=== PATIENT | male | born 1970 | race Caucasian/White ===

== ENCOUNTER → 2021-05-13 08:19 | Outpatient (CLI) | payer OTHER, SELFPAY ==
[2021-05-13 10:41] LABS: Cholesterol 174 mg/dL (140-199); HDL Cholesterol 59 mg/dL (40-60); LDL Cholesterol Calculated 101 mg/dL (<100); Triglycerides 68 mg/dL (35-150)
[2021-05-14 08:46] LABS: Rubeola Measles IgG > 300.0 AU/mL (Immune >16.4)
[2021-05-14 11:41] LABS: Mumps Virus IgG Antibody <9.0 AU/mL (Immune >10.9)
== END ==
PROVIDERS: Family Provider Family Medicine; PCP Internal Medicine; Referring Provider Internal Medicine; Visit Provider Internal Medicine
DX: B34.9 Viral infection, unspecified (principal); Z13.220 Encounter for screening for lipoid disorders
CPT/HCPCS: 36415; 80061; 86735; 86762; 86765

== ENCOUNTER → 2022-01-10 16:42 | Outpatient (CLI) | payer OTHER, SELFPAY ==
[2022-01-11 15:46] LABS: Fecal Immunochemical Test Positive (Negative)
== END ==
PROVIDERS: Family Provider Family Medicine; PCP Internal Medicine; Referring Provider Internal Medicine; Visit Provider Internal Medicine
DX: Z12.11 Encounter for screening for malignant neoplasm of colon (principal)
CPT/HCPCS: 82274

== ENCOUNTER → 2022-02-23 13:37 | Outpatient (CLI) | payer OTHER, SELFPAY ==
[2022-02-23 14:26] LABS: COVID19 -Nasal RAPID Negative (Negative)
== END ==
PROVIDERS: Family Provider Family Medicine; PCP Internal Medicine; Visit Provider Surgery
DX: Z20.822 Contact with and (suspected) exposure to COVID-19 (principal); Z01.812 Encounter for preprocedural laboratory examination
CPT/HCPCS: 87635; C9803

== ENCOUNTER 2022-02-24 12:18 | Day surgery (SDC) | payer OTHER, SELFPAY ==
--- NOTE | 2022-02-24 | PATH_ITS ---
[facility] Accession Number: [id number] . 01 Material submitted: . PART A: colon - DESCENDING COLON POLYPS PART B: colon - ASCENDING COLON POLYPS PART C: colon - PROXIMAL TRANSVERSE COLON POLYP PART D: colon - TRANSVERSE COLON POLYPS PART E: sigmoid colon - SIGMOID COLON POLYP . 02 Diagnosis: A. Descending Colon Polyps: Portions of tubular adenoma x2. . B. Ascending Colon Polyps: Portion of tubular adenoma x1 with prominent submucosal fibroadipose tissue, favor adenomatous change overlying a submucosal lipoma. Portions of sessile serrated adenoma x2. . C. Proximal Transverse Colon Polyp: Portions of sessile serrated adenoma x5. . D. Transverse Colon Polyps: Portions of tubular adenoma x2. . E. Sigmoid Colon Polyp: Portions of tubular adenoma x5. [facility] 03/01/2022 1545 Local . 02 Electronically signed: . Anne-Marie Murphy MD, Pathologist NPI- [id number] . 01 Gross description: . Part A: DESCENDING COLON POLYPS: Received in formalin are 2 fragment(s) of madsen, soft tissue measuring 0.7 x 0.3 x 0.2 cm to 0.5 x 0.3 x 0.2 cm submitted entirely in 1 cassette(s) Part B: ASCENDING COLON POLYPS: Received in formalin are 3 fragment(s) of madsen, soft tissue measuring 1.1 x 0.8 x 0.8 cm to 0.3 x 0.1 x 0.1 cm submitted entirely in 2 cassette(s) Part C: PROXIMAL TRANSVERSE COLON POLYP: Received in formalin are multiple fragment(s) of madsen, soft tissue measuring 1.2 x 0.6 x 0.1 cm to 1.2 x 0.5 x 0.1 cm submitted entirely in 2 cassette(s) Part D: TRANSVERSE COLON POLYPS: Received in formalin are 2 fragment(s) of madsen, soft tissue measuring 0.7 x 0.5 x 0.4 cm to 0.5 x 0.4 x 0.3 cm which are bisected and submitted entirely in 2 cassette(s) Part E: SIGMOID COLON POLYP: Received in formalin are multiple fragment(s) of madsen, soft tissue measuring 2.0 x 0.5 x 0.2 cm in aggregate submitted entirely in 1 cassette(s) /CPE 02/25/2022 0652 Local . 02 Pathologist provided ICD-10: R19.5, K63.5 . 02 CPT . 988401, 163329, 257848, 962976, 604794 Specimen Comment: A courtesy copy of this report has been sent to [phone] Performed at: 01 [facility] [address] [id number] MD Juan Morocho MD Phone: [phone] Performed at: 02 [facility] [address] [address] [place], [place] [id number] MD Taryn Oakes MD Phone: [phone]
[2022-02-24] MEDS: LACTATED RINGERS 1,000 ML 84 ML IV (12:41)
[2022-02-24 12:49] VITALS: BP 119/71; PULSE 72; RESP 16; TEMP 36.8; O2SAT 99; BMI 28.7
--- NOTE | 2022-02-24 13:59 | PM.HP.1 ---
History of Present Illness History of Present Illness Date Patient Seen: 02/24/22 Time Patient Seen: 13:59 Chief complaint: DX COLONOSCOPY Narrative: Steven is a healthy 51-year-old man who had recent fit test that was positive. 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) Surgical History H/O umbilical hernia repair Family & Social History Social History: household members spouse Tobacco & Substance use: Smoking Status Former smoker alcohol intake current alcohol intake frequency a few times a week Substance Use Type does not use Meds Home Medications and Allergies Home Medications Medication Instructions Recorded Confirmed Type No Known Home Medications 02/24/22 02/24/22 History Allergies Allergy/AdvReac Type Severity Reaction Status Date / Time codeine [CODEINE] Allergy Mild CAUSES Verified 02/24/22 12:44 HICCUPS Exam Vital Signs (past 8 hours): - 02/24/22 12:49 Temperature 98.2 F Pulse Rate 72 Respiratory Rate 16 Blood Pressure 119/71 Pulse Oximetry 99 Oxygen Delivery Method Room Air Const General: healthy appearing Resp Effort & Inspection: normal respiratory effort GI Palpation: soft Assessment & Plan Assessment and plan (1) Positive FIT (fecal immunochemical test): Status: Acute Plan Healthy 51-year-old man with a positive fit test. We discussed colonoscopy and he would like to proceed. COVID-19 COVID-19 status: Negative Result date/Date tested (Pos, Neg/Pending): 02/23/22 Time Spent With Patient Critical Care time: I spent a total of [] minutes of critical care time on this patient's care today; this time is exclusive of procedural time.
[2022-02-24] MEDS: MIDAZOLAM 5 MG/5 ML VIAL 9 MG IV (14:06)
[2022-02-24] MEDS: fentaNYL 250 MCG/5 ML INJ 200 MCG IV (14:06)
--- NOTE | 2022-02-24 15:07 | PM.OP.COLON ---
Operative Date/Time/Diagnoses Date of procedure: 02/24/22 Time of procedure: 15:07 Pre-op diagnosis: Positive fit test Post-op diagnosis: same Procedure & Clinicians Study performed: Colonoscopy Same procedure as scheduled: Yes Procedure Notes Procedure in detail: Surgeon: Leonel Huerta MD Procedure: The patient was brought to the endoscopy suite, placed in left lateral decubitus position. The patient was connected to monitoring devices. A time-out was performed. Sedation was administered. Once the patient was adequately sedated, a digital rectal exam was performed and was normal. The scope was then inserted and advanced to the right colon where a 1.2 cm polyp was noted and removed with hot snare and withdrawn with the Mcdonnell Net. The scope was then reinserted to the cecum where the appendiceal orifice was identified and photographed. The scope was then slowly withdrawn over greater than 6 minutes. Mucosa was thoroughly inspected. There was 1 additional 1 cm polyp in the ascending colon which was removed with the hot snare. There were 2 polyps in the transverse colon, one of which was very flat and longer than 1 cm and was lifted with a saline lift before being removed with the hot snare. The other proximal transverse colon polyp was removed with cold snare. There were 2 other subcentimeter polyps were removed from the mid transverse colon with cold snare. There was a subcentimeter polyp in the sigmoid colon removed with hot snare. The scope was retroflexed in the rectum. No other abnormalities were noted. The scope was straightened and removed. The patient was awakened and brought to recovery. Versed: 9 mg Fentanyl: 200 mcg EBL: 15 mL Findings: 2 polyps in the ascending colon, both just over 1 cm, 2 polyps in proximal transverse colon, 2 polyps in the mid transverse colon, 1 polyp in the sigmoid colon Scope withdrawal time: 35 Sedation minutes: 59 Post-procedure Recommendations: Will call with biopsy results Disposition: PACU
[2022-02-24 15:10] VITALS: BP 102/68; PULSE 65; RESP 11; TEMP 36.3; O2SAT 97
[2022-02-24 15:15] VITALS: BP 97/61; PULSE 62; RESP 10; O2SAT 96
[2022-02-24 15:25] VITALS: BP 95/66; PULSE 64; RESP 11; O2SAT 98
[2022-02-24 15:30] VITALS: BP 124/87; PULSE 60; RESP 11; O2SAT 97
== END 2022-02-24 16:00 | disposition home or self-care (01) ==
PROVIDERS: Family Provider Family Medicine; PCP Internal Medicine; Referring Provider Surgery; Visit Provider Surgery
PROC: 0DJD8ZZ Inspection of Lower Intestinal Tract, Via Natural or Artificial Opening Endoscopic (ICD-10-PCS; CPT 45378; principal; 2022-02-24 13:45)
DX: R19.5 Other fecal abnormalities (principal); D12.4 Benign neoplasm of descending colon; D12.2 Benign neoplasm of ascending colon; D12.3 Benign neoplasm of transverse colon; D12.5 Benign neoplasm of sigmoid colon
CPT/HCPCS: 45381; 45385; 99152; 99153; J2250; J3010

== ENCOUNTER → 2024-12-14 09:34 | Outpatient (CLI) | payer BC, SELFPAY ==
[2024-12-14 12:12] LABS: Alanine Aminotransferase 23 IU/L (<50); Albumin 4.1 g/dL (3.5-5.0); Albumin Globulin Ratio 1.6 (1.0-2.8); Alkaline Phosphatase 46 U/L (38-126); Aspartate Aminotransferase 29 IU/L (17-59); BUN Creatinine Ratio 18.2 (6-22); Bilirubin Total 0.8 mg/dL (0.2-1.3); Blood Urea Nitrogen 20 mg/dL (9-20); Carbon Dioxide 29 mmol/L (22-32); Chloride 105 mmol/L (98-107); Cholesterol 151 mg/dL (140-199); Estimated Glomerular Filt Rate > 60 mL/min (>60); Globulin 2.6 g/dL (1.7-4.1); Glucose 100 mg/dL (70-100); HDL Cholesterol 56 mg/dL (40-60); HEMOLYSIS < 15 (0-50); LDL Cholesterol Calculated 83 mg/dL (<100); Sodium 140 mmol/L (137-145); Total Protein 6.7 g/dL (6.3-8.2); Triglycerides 62 mg/dL (35-150)
[2024-12-14 12:42] LABS: Prostate Specific Antigen Scrn 1.01 ng/mL (0.1-4.0)
[2024-12-16 15:08] LABS: Var-Zoster Immunity Screen Reactive (Non Reactive)
== END ==
PROVIDERS: Family Provider Family Medicine; PCP Internal Medicine; Referring Provider Internal Medicine; Visit Provider Internal Medicine
DX: B02.9 Zoster without complications (principal); Z12.5 Encounter for screening for malignant neoplasm of prostate; Z13.1 Encounter for screening for diabetes mellitus; Z13.6 Encounter for screening for cardiovascular disorders; E78.5 Hyperlipidemia, unspecified
CPT/HCPCS: 36415; 80053; 80061; 86787; G0103

== ENCOUNTER 2025-03-19 13:35 | Day surgery (SDC) | payer BC, SELFPAY ==
--- NOTE | 2025-03-19 | PATH_ITS ---
[facility] Accession Number: [id number] No. of containers..01 Tissue . 01 Material submitted: . colon - COLON, POLYP X 2 @ 30CM . 01 Diagnosis: COLON AT 30 CM, POLYPECTOMIES: Tubular adenomas (two polyps removed). [facility] 03/21/2025 1512 Local . 01 Electronically signed: . Johanna Kong DO, Pathologist NPI- [id number] . 01 Gross description: . COLON, POLYP X 2 @ 30CM: Received in formalin are 2 fragment(s) of madsen, soft tissue measuring 0.1 x 0.1 x 0.1 cm to 0.5 x 0.3 x 0.2 cm submitted entirely in 1 cassette(s) /JASON 03/20/20252054 Local . 01 Pathologist provided ICD-10: Z12.11 . 01 CPT . 411202 Specimen Comment: A courtesy copy of this report has been sent to [phone] Performed at: 01 [facility] [address], [place], [place] [id number] MD Juan Morocho MD Phone: [phone]
[2025-03-19 13:54] VITALS: BP 113/67; PULSE 59; RESP 16; TEMP 36.2; O2SAT 96
[2025-03-19] MEDS: LACTATED RINGERS 1,000 ML 84 ML IV (14:02)
--- NOTE | 2025-03-19 14:06 | PM.HP.IH.1 ---
History of Present Illness History of Present Illness Date Patient Seen: 03/19/25 Chief complaint: Screening Colonoscopy Narrative: Follow-up colonoscopy after the 1st found multiple polyps of varying sizes. Pathology showed all than to be tubular adenomas with the exception of 1 which was a sessile serrated adenoma. He now returns for routine follow-up. 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) Surgical History H/O umbilical hernia repair Social History household members: spouse Smoking Status: Never smoker alcohol intake: current Meds Home Medications and Allergies Allergies Allergy/AdvReac Type Severity Reaction Status Date / Time No Known Drug Allergies Allergy Verified 03/19/25 14:01 Exam Vital Signs (past 8 hours): - 03/19/25 13:54 Temperature 97.1 F L Pulse Rate 59 L Respiratory Rate 16 Blood Pressure 113/67 Pulse Oximetry 96 Oxygen Delivery Method Room Air Oxygen Delivery Method Room Air Narrative Exam Narrative: Oropharynx free of lesion Assessment & Plan Assessment & Plan narrative: Multiple enlarged colon polyps 1 of which was a sessile serrated adenoma need for follow-up colonoscopy. Risks, benefits, alternatives have been explained. Time-Based Coding :: [TOTAL MINUTES] spent with patient and on the chart (including review of chart, obtaining history, exam, reviewing outside data, placing orders, documenting exam and treatment plan, and counseling patient) on [DATE]. PROFEE District Resource Officer Document charge(s): No
--- NOTE | 2025-03-19 14:08 | PM.OP.COLON ---
Operative Date/Time/Diagnoses Date of procedure: 03/19/25 Time of procedure: 14:30 Pre-op diagnosis: See indication and findings Post-op diagnosis: same Procedure & Clinicians Study performed: Colonoscopy Same procedure as scheduled: Yes Indications: Multiple large colon polyps follow-up Surgeon: Rita Eduardo Procedure Notes Procedure in detail: After informed consent was was obtained the patient was placed in left lateral decubitus position. The video ?colonoscope was placed into the rectum slowly advanced cecum. On slow withdrawal the mucosa was carefully examined. The scope was removed. The patient tolerated procedure well. Blood loss none Complications none Sedation mac Findings 1. Two diminutive polyps at 30 cm Jumbo biopsied and removed completely 2. Otherwise negative colonoscopy to cecum I think we can now stretch out the colonoscopy interval to 5 years.
[2025-03-19 14:33] VITALS: BP 92/63; PULSE 78; RESP 18; TEMP 36.3; O2SAT 95
[2025-03-19 14:38] VITALS: BP 98/63; PULSE 68; RESP 15; O2SAT 96
[2025-03-19 14:45] VITALS: BP 97/66; PULSE 62; RESP 16; O2SAT 97
[2025-03-19 14:55] VITALS: BP 106/74; PULSE 59; RESP 13; O2SAT 98
[2025-03-19 15:08] VITALS: BP 105/73; PULSE 65; RESP 15; O2SAT 99
== END 2025-03-19 15:15 | disposition home or self-care (01) ==
PROVIDERS: Family Provider Family Medicine; PCP Internal Medicine; Referring Provider Internal Medicine Gastroenterology; Visit Provider Internal Medicine Gastroenterology
PROC: 0DJD8ZZ Inspection of Lower Intestinal Tract, Via Natural or Artificial Opening Endoscopic (ICD-10-PCS; CPT 45378; principal; 2025-03-19 14:45)
DX: Z12.11 Encounter for screening for malignant neoplasm of colon (principal); Z86.0100 Personal history of colon polyps, unspecified; Z86.0101 Personal history of adenomatous and serrated colon polyps; D12.6 Benign neoplasm of colon, unspecified
CPT/HCPCS: 45380; J2704